=== PATIENT | male | born 1965 | race Caucasian/White ===

== ENCOUNTER 2024-12-14 01:13 | Emergency (ER) | payer SELFPAY ==
[2024-12-14 01:23] VITALS: BP 136/82; PULSE 87; RESP 18; TEMP 36.4; O2SAT 99; BMI 27.1
[2024-12-14 02:08] LABS: Basophils % 0.3 %; Eosinophils # 0.1 10^3/uL (0.0-0.8); Eosinophils % 0.7 %; Hematocrit 51.7 % (37-53); Lymphocytes # 0.9 10^3/uL (0.8-4.8); Mean Corpuscular HGB Conc 33.1 g/dL (30-55); Mean Corpuscular Hemoglobin 29.9 pg (27-33); Mean Corpuscular Volume 90.4 fl (82-101); Mean Platelet Volume 10.2 fL (7.4-10.4); Monocytes # 0.3 10^3/uL (0.2-0.9); Monocytes % 3.8 %; Neutrophils % 84.9 %; Nucleated Red Blood Cells % 0 %; Platelet Count 221 10^3/cmm (157-399); Red Blood Count 5.72 10^6/uL (3.85-5.65); Red Cell Distribution Width 13.2 % (12.1-15.1); White Blood Count 8.72 10^3/uL (3.29-11.43)
[2024-12-14 02:31] LABS: Alanine Aminotransferase 28 U/L (0-41); Albumin Level 4.6 g/dL (3.5-5.2); Alcohol Level 136 mg/dL (0-10); Alkaline Phosphatase 67 U/L (40-130); Anion Gap 15.1 (5-19); Aspartate Amino Transferase 31 U/L (0-40); Blood Urea Nitrogen 11 mg/dL (6-20); Calcium 9.5 mg/dL (8.5-10.5); Carbon Dioxide 27 mmol/L (22-29); Chloride 102 mmol/L (98-107); Creatinine Clr Calc Pharmacy 77.6693; Globulin 3.5 g/dL (1.3-4.6); Glucose 104 mg/dL (65-115); Lipase 85 U/L (13-60); Osmolality Calculated 290 mOsm/kg (285-295); Potassium 4.1 mmol/L (3.5-5.1); Sodium 140 mmol/L (136-145); Total Bilirubin 0.5 mg/dL (0.15-1.2); Total Protein 8.1 g/dL (6.6-8.7)
[2024-12-14] MEDS: ondansetron 2 mg/ML SDV 2 mL 4 MG IVP ×2 (02:40→06:07)
[2024-12-14] MEDS: sodium chloride 0.9% 1,000 ML 999 ML IV (02:41)
[2024-12-14 03:00] VITALS: BP 135/69; PULSE 83; RESP 15; O2SAT 99
--- NOTE | 2024-12-14 06:17 | ED_ITS ---
HPI - Nausea/Vomiting/Diarrhea 2 General: Chief complaint: Nausea/Vomiting/Diarrhea Stated complaint: N/V Time Seen by Provider: 12/14/24 01:25 History of Present Illness: Patient is a well-appearing 59-year-old male who was flown to the emergency department for vomiting. There was some concern he may have vomited some blood but flexor did not appreciate any blood in his vomitus. He arrives somewhat somnolent and admits to drinking alcohol during the night. He states he does not typically drink alcohol but tonight he did and then he vomited and then he came to the ER by air. He has no acute complaints. Physical Exam 2 Const: COMMON NORMALS: no acute distress, patient oriented x3 and alert HENMT: COMMON NORMALS: normocephalic and atraumatic HEAD & SCALP: n ormocephalic and atraumatic Eye: COMMON NORMALS: Equal, round and reactive pupils present, EOMs intact bilaterally and no scleral icterus PUPIL: Yes Equal, round and reactive pupils present Resp: COMMON NORMALS: normal respiratory effort and No retractions Cardio: COMMON NORMALS: regular rate, regular rhythm and No murmurs present (Cardio) RATE: regular rate RHYTHM: regular rhythm GI: COMMON NORMALS: Normal to inspection, nondistended, normoactive bowel sounds present, Soft to palpation and non-tender PALPATION: Yes Soft to palpation Neuro: COMMON NORMALS: patient oriented x3 SENSORIUM/ORIENTATION: Yes alert Skin: COMMON NORMALS: no rashes or lesions noted GENERAL SKIN EXAM: no rashes or lesions noted Course 2 Vital Signs: Vital signs: Vital Signs Temperature 97.5 F L 12/14/24 01:23 Pulse Rate 83 12/14/24 03:00 Respiratory Rate 15 12/14/24 03:00 Blood Pressure 135/69 12/14/24 03:00 Pulse Oximetry 99 12/14/24 03:00 Oxygen Delivery Me thod Room Air 12/14/24 03:00 MDM - Nausea/Vomiting/Diarrhea Medical Decision Making patient was initially somewhat somnolent but quickly regained mental status and is speaking clearly. Alcohol level is only mildly elevated. Hemoglobin is stable. He has not vomited in the emergency department and there is no blood in his posterior oropharynx to imply recent upper GI bleed. I do not appreciate any other emergent process warranting further workup and he will be discharged in stable condition peer Lab Data 12/14/24 02:00 12/14/24 02:00 Laboratory Results WBC 8.72 10^3/uL (3.29-11.43) 12/14/24 02:00 RBC 5.72 10^6/uL (3.85-5.65) H 12/14/24 02:00 Hgb 17.10 g/dL (11.27-16.99) H 12/14/24 02:00 Hct 51.7 % (37-53) 12/14/24 02:00 MCV 90.4 fl (82-101) 12/14/24 02:00 MCH 29.9 pg (27-33) 12/14/24 02:00 MCHC 33.1 g/dL (30-55) 12/14/24 02:00 RDW 13.2 % (12.1-15.1) 12/14/24 02:00 Plt Count 221 10^3/cmm (157-399) 12/14/24 02:00 MPV 10.2 fL (7.4-10.4) 12/14/24 02:00 Neut % (Auto) 84.9 % 12/14/24 02:00 Lymph % (Auto) 10.0 % 12/14/24 02:00 [place] % (Auto) 3.8 % 12/14/24 02:00 Eos % (Auto) 0.7 % 12/14/24 02:00 Baso % (Auto) 0.3 % 12/14/24 02:00 Neut # (Auto) 7.40 10^3/uL (1.8-7.7) 12/14/24 02:00 Lymph # (Auto) 0.9 10^3/uL (0.8-4.8) 12/14/24 02:00 [place] # (Auto) 0.3 10^3/uL (0.2-0.9) 12/14/24 02:00 Eos # (Auto) 0.1 10^3/uL (0.0-0.8) 12/14/24 02:00 Baso # (Auto) 0.0 10^3/uL (0.0-0.1) 12/14/24 02:00 Nucleated RBC % (auto) 0 % 12/14/24 02:00 Nucleated RBCs # 0.0 /100WBC 12/14/24 02:00 Sodium 140 mmol/L (136-145) 12/14/24 02:00 Potassium 4.1 mmol/L (3.5-5.1) 12/14/24 02:00 Chloride 102 mmol/L (98-107) 12/14/24 02:00 Carbon Dioxide 27 mmol/L (22-29) 12/14/24 02:00 Anion Gap 15.1 (5-19) 12/14/24 02:00 BUN 11 mg/dL (6-20) 12/14/24 02:00 Creatinine 1.2 mg/dL (0.7-1.2) 12/14/24 02:00 GFR Calculation 62.0 mL/min (90-130) L 12/14/24 02:00 Glucose 104 mg/dL (65-115) 12/14/24 02:00 Calculated Osmolality 290 mOsm/kg (285-295) 12/14/24 02:00 Calcium 9.5 mg/dL (8.5-10.5) 12/14/24 02:00 Total Bilirubin 0.5 mg/dL (0.15-1.2) 12/14/24 02:00 AST 31 U/L (0-40) 12/14/24 02:00 ALT 28 U/L (0-41) 12/14/24 02:00 Alkaline Phosphatase 67 U/L (40-130) 12/14/24 02:00 Total Protein 8.1 g/dL (6.6-8.7) 12/14/24 02:00 Albumin 4.6 g/dL (3.5-5.2) 12/14/24 02:00 Globulin 3.5 g/dL (1.3-4.6) 12/14/24 02:00 Lipase 85 U/L (13-60) H 12/14/24 02:00 Ethyl Alcohol 136 mg/dL (0-10) H 12/14/24 02:00 No radiology studies performed this visit Discharge Plan Discharge Patient Disposition: Home Clinical Impression: Vomiting Condition: Stable Discharge Orders: Discharge ED (Routine); Ordered 12/14/24 Ordered By: Thomas Lucas Discharge Diet: Advance as tolerated Discharge Activity: Increase activity as tolerated Patient Instructions: Vomiting - Adult Activity Restrictions/Additional Instructions: You were brought to the emergency department because you were vomiting and ambulance personnel were concerned you may be vomiting blood. Your blood work is reassuring and it is safe for you to follow-up with your primary care doctor as you normally would. Print Language: Italian Coding Level of Care Code ED Records Management Clerk for Laura Garcia
[2024-12-14 06:26] VITALS: BP 124/70; PULSE 78; RESP 16; O2SAT 96
== END 2024-12-14 06:11 | disposition home or self-care (01) ==
PROVIDERS: Emergency Provider Student in an Organized Health Care Education/Training Program
DX: R11.10 Vomiting, unspecified (principal)
CPT/HCPCS: 36415; 80053; 80307; 83690; 85025; 96374; 96375; 99284; J2405; J7030

== ENCOUNTER → 2025-04-29 15:53 | Outpatient (BNVA) | payer OTHER, MEDICAID, SELFPAY | PROVIDERS: Family Provider Nurse Practitioner Family; Visit Provider Nurse Practitioner Family | DX: I10 Essential (primary) hypertension (principal); E11.9 Type 2 diabetes mellitus without complications; E78.5 Hyperlipidemia, unspecified | CPT/HCPCS: 80053; 80061; 83036; 83721; 84443; 85025 ==

== ENCOUNTER → 2025-06-02 14:23 | Outpatient (BNVA) | payer MEDICAID, SELFPAY | PROVIDERS: Family Provider Nurse Practitioner Family; Visit Provider Internal Medicine Cardiovascular Disease | DX: R07.9 Chest pain, unspecified (principal); I25.10 Atherosclerotic heart disease of native coronary artery without angina pectoris | CPT/HCPCS: 93005; 99204 ==

== ENCOUNTER 2025-06-17 08:45 | Outpatient (CLI) | payer MEDICAID, SELFPAY ==
[2025-06-17 09:08] VITALS: BMI 31.1
--- NOTE | 2025-06-17 09:32 | ECG_ITS ---
[email or web address] Test Date: 2025-06-17 Pat Name: Ab López Department: Room: Gender: Male Medical Lab Technician: : 1965 Requested By: Jamison De Los Santos Order Number: [id number] Santa MD: Jamison De Los Santos M.D. Interpretive Statements Procedure: A total of 0.4 mg of Lexiscan was infused over 20 seconds. The stress phase was continued for a total of 5 minutes. Sestamibi was injected 20 seconds after the Lexiscan infusion. Findings:The patient's baseline blood pressure was 158/77 with a heart rate of 83. The patient's blood pressure decreased to 148/78 after Lexiscan injection and heart rate increased to a peak of 107 bpm. The patient had no chest pain during the stress test no ST changes and no arrhythmias. Baseline EKG showed normal sinus rhythm with borderline poor R wave progression. Conclusion: 1. Normal EKG response to Lexiscan infusion 2. No Lexiscan induced chest pain or cardiac arrhythmia. 3. Normal blood pressure and heart rate response. 4. Nuclear myocardial perfusion scan pending; see separate report. Electronically Signed On 06-17-2025 19:00:10 INSIDE WIRER by Jamison De Los Santos M.D. [email or web address]
--- NOTE | 2025-06-17 09:33 | NMCV_ITS ---
NM tarun perf SPECT r/s* [id number] Ab López Age: 60 Gender: M : 1965 Exam Date: 06/17/2025 09:50 Ordering Phys: Jamison De Los Santos MD ([email or web address]) Technologist: LUIS Irby Exam Location: [facility] Indications: cp STRESS TEST Please see separate stress test report in [facility] for full findings IMAGE PROTOCOL Rest/Stress 1 Lexiscan Day Radiopharmaceutical Dose (mCi) Administration Site Administered by Rest: Tc-99m 10.2 IV Anna Berg, MULTIPLE CUT OFF SAW OPERATOR Sestamibi Stress:Tc-99m 32.7 IV Anna Beebegle, MULTIPLE CUT OFF SAW OPERATOR Sestamibi Rest: 17-Jun-2025 60 Discovery 630 Stress: 17-Jun-2025 30 Discovery 630 0.4mg Lexiscan. Images obtained in supine and prone position. SPECT RESULTS Technical Quality: Good Raw Data Analysis: Normal Image Corrections: No attenuation or motion correction applied Summed Stress Score: 2 Summed Rest Score: 0 Summed Difference Score: 2 PERFUSION FINDINGS SPECT images demonstrate homogeneous tracer distribution throughout the myocardium. FUNCTIONAL RESULTS (calculated via Gated SPECT) Stress Image LV EF (%): 59 Stress EDV (mL):140 TID: 1.06 Stress ESV (mL):58 FUNCTIONAL FINDINGS: There is normal left ventricular systolic function. IMPRESSIONS Myocardial perfusion imaging is normal. Normal left ventricular systolic function, EF 59% Jamison De Los Santos MD, FACC (Electronically Signed) Final Date: 17 June 2025 16:41 S
[2025-06-17 10:28] VITALS: BP 173/80; PULSE 88
== END 2025-06-17 08:46 | disposition home or self-care (01) ==
LOC: CDL 08:48
PROVIDERS: Visit Provider Internal Medicine Cardiovascular Disease
DX: I25.10 Atherosclerotic heart disease of native coronary artery without angina pectoris (principal); R07.9 Chest pain, unspecified
CPT/HCPCS: 36415; 78452; 93017; 96374; A9500; J2785